=== PATIENT | female | born 1970 | race Two or more races ===

== ENCOUNTER 2024-02-07 11:25 | Inpatient (IN) | payer OTHER ==
[~2024-02-07] VITALS: Ht 160 cm; Wt 83.0 kg
[2024-02-07] MEDS ORDERED: LEVO-T112 MCG (13:22)
[2024-02-07] MEDS ORDERED: METFORMIN HCL500 M3 (13:23)
[2024-02-07] MEDS ORDERED: PANTOPRAZOLE SO40 M2 (13:23)
[2024-02-07] MEDS ORDERED: CALTRATE 600 +1 EAC1 (13:23)
[2024-02-07] MEDS ORDERED: ROCALTROL0.25 MCG (13:24)
[2024-02-13] MEDS ORDERED: METRONIDAZOLE/SODIUM CHLORIDE 500 MG/100 ML PIGGYBACK IV ONE (09:00)
[2024-02-13] MEDS ORDERED: LIDOCAINE HCL 1%/EPINEPHRINE 20ML VIAL IJ ONE (09:00)
[2024-02-13] MEDS ORDERED: CEFTRIAXONE SODIUM 2,000 MG VIAL IV ONE (09:00)
[2024-02-13] MEDS ORDERED: BUPIVACAINE HCL 30 ML VIAL IJ ONE (09:00)
[2024-02-13] MEDS ORDERED: DEXTROSE 50 % IN WATER 0.5 G/ML DISP.SYRIN IV PRN (09:30)
[2024-02-13] MEDS ORDERED: ONDANSETRON HCL 2 MG/ML VIAL IV PRN (09:30)
[2024-02-13] MEDS ORDERED: OxyCODONE HCL 5 MG TABLET (ROXICODONE) PO PRN (09:30)
[2024-02-13] MEDS ORDERED: MORPHINE SULFATE 4 MG/ML CARTRIDGE IV PRN (09:30)
[2024-02-13] MEDS ORDERED: RINGERS SOLUTION,LACTATED 1,000 ML IV SCH (09:30)
[2024-02-13] MEDS ORDERED: MORPHINE SULFATE 4 MG/ML VIAL IV ONE ×2 (10:10→11:50)
[2024-02-13 10:36] LABS: HEMATOCRIT 36.2 % (36.0-45.00); HEMOGLOBIN 12.2 g/dL (12.0-15.00); MEAN CELL VOLUME 82.3 fL (80.00-100.00); MEAN CORPUSCULAR HEMOGLOBIN 27.8 pg (27.00-32.0); MEAN CORPUSCULAR HGB CONC 33.7 g/dl (32.0-36.0); PLATELET COUNT 312 K/uL (150-450); RED CELL DISTRIBUTION WIDTH 13.9 % (11.5-14.5)
[2024-02-13 11:19] LABS: ALBUMIN 3.4 gm/dL (3.4-5.0); CALCIUM 7.8 mg/dL (8.5-10.1); CREATININE SERUM 0.89 mg/dL (0.55-1.02); GFR 66.35; PHOSPHOROUS 4.8 mg/dL (2.5-4.9); POTASSIUM 4.03 mEq/L (3.5-5.1)
[2024-02-13] MEDS ORDERED: HYOSCYAMINE SULFATE 0.125 MG TAB.SUBL SL SCH (13:00)
[2024-02-13] MEDS ORDERED: ACETAMINOPHEN 500 MG GEL..CAP PO SCH (14:00)
[2024-02-13 16:00] VITALS: BP 140/68; O2SAT 100
[2024-02-13] MEDS ORDERED: POLYETHYLENE GLYCOL 3350 17 GM BLIST.PACK PO SCH (17:00)
[2024-02-13] MEDS ORDERED: GABAPENTIN 300 MG CAPSULE PO SCH (17:00)
[2024-02-13] MEDS ORDERED: FAMOTIDINE/PF 20 MG/2 ML VIAL IV PUSH SCH (21:00)
[2024-02-14 00:45] VITALS: BP 114/76; O2SAT 100
[2024-02-14] MEDS ORDERED: LEVOTHYROXINE SODIUM 112 MCG TABLET PO SCH (06:00)
[2024-02-14 06:53] LABS: HEMATOCRIT 37.5 % (36.0-45.00); HEMOGLOBIN 12.5 g/dL (12.0-15.00); MEAN CELL VOLUME 83.6 fL (80.00-100.00); MEAN CORPUSCULAR HEMOGLOBIN 27.8 pg (27.00-32.0); MEAN CORPUSCULAR HGB CONC 33.3 g/dl (32.0-36.0); PLATELET COUNT 302 K/uL (150-450); RED BLOOD COUNT 4.49 M/uL (4.00-6.00); RED CELL DISTRIBUTION WIDTH 13.9 % (11.5-14.5)
[2024-02-14 07:13] LABS: ALBUMIN 3.4 gm/dL (3.4-5.0); CALCIUM 7.5 mg/dL (8.5-10.1); CREATININE SERUM 0.7 mg/dL (0.55-1.02); GFR 87.53; MAGNESIUM 2.1 mg/dL (1.8-2.4); POTASSIUM 3.62 mEq/L (3.5-5.1)
[2024-02-14 08:00] VITALS: BP 103/61; O2SAT 97
[2024-02-14 16:03] VITALS: BP 99/65; O2SAT 98
[2024-02-14] MEDS ORDERED: ENOXAPARIN SODIUM 40 MG/0.4 ML SYRINGE SUBCUTANEO SCH (17:00)
[2024-02-15] VITALS: BP 113/73; O2SAT 98
[2024-02-15] MEDS ORDERED: ENOXAPARIN SODIUM 40 MG/0.4 ML SYRINGE SUBCUTANEO SCH (09:00)
[2024-02-15 09:08] VITALS: BP 115/67; O2SAT 97
[2024-02-15] MEDS ORDERED: INTESTINEX680 M1 PO (12:27)
[2024-02-15] MEDS ORDERED: HYOSCYAMINE0.125 M1 SL (12:27)
== END 2024-02-15 14:02 | disposition home or self-care (01) | DRG 331 ==
LOC: O/R 02-13 05:25 → SURG 02-13 05:25 → SURH 02-13 07:00 → SURG 02-13 14:08
PROVIDERS: ADMIT Surgery; ATTEND Surgery
PROC: 0DBP4ZZ Excision of Rectum, Percutaneous Endoscopic Approach (ICD-10-PCS; 2024-02-13)
PROC: 0DJD8ZZ Inspection of Lower Intestinal Tract, Via Natural or Artificial Opening Endoscopic (ICD-10-PCS; 2024-02-13)
PROC: 0DTN4ZZ Resection of Sigmoid Colon, Percutaneous Endoscopic Approach (ICD-10-PCS; principal; 2024-02-13 07:00)
DX: K57.32 Diverticulitis of large intestine without perforation or abscess without bleeding (principal); R10.32 Left lower quadrant pain

== ENCOUNTER 2024-03-03 13:01 | Emergency (ER) | payer OTHER ==
[~2024-03-03] VITALS: Ht 160 cm; Wt 78.0 kg
[~2024-03-03 13:01] MED LIST: CALTRATE 600 +1 EAC1; HYOSCYAMINE0.125 M1 SL; INTESTINEX680 M1 PO; LEVO-T112 MCG; METFORMIN HCL500 M3; PANTOPRAZOLE SO40 M2; ROCALTROL0.25 MCG
[2024-03-03 14:22] LABS: HEMOGLOBIN 13.5 g/dL (12.0-15.00); MEAN CELL VOLUME 82.4 fL (80.00-100.00); MEAN CORPUSCULAR HEMOGLOBIN 27.9 pg (27.00-32.0); MEAN CORPUSCULAR HGB CONC 33.8 g/dl (32.0-36.0); PLATELET COUNT 397 K/uL (150-450); RED BLOOD COUNT 4.86 M/uL (4.00-6.00); RED CELL DISTRIBUTION WIDTH 13.7 % (11.5-14.5)
[2024-03-03 15:06] LABS: BILIRUBIN TOTAL 0.9 mg/dL (0.3-1.2); CALCIUM 7.9 mg/dL (8.5-10.1); CREATININE SERUM 0.79 mg/dL (0.55-1.02); GFR 76.13; GLOBULINA 3.6 G/DL (2.4-3.5); POTASSIUM 4.59 mEq/L (3.5-5.1); TOTAL PROTEIN 7.6 gm/dL (6.4-8.2)
== END 2024-03-03 19:29 | disposition home or self-care (01) ==
LOC: ER 13:03
PROVIDERS: General Practice
DX: K63.89 Other specified diseases of intestine (principal); K76.89 Other specified diseases of liver